=== PATIENT | female | born 1985 ===

== ENCOUNTER → 2018-04-12 | Outpatient (CLI) | payer OTHER ==
[~2018-04-12] MED LIST: GADOBUTROL 10 MMOL/10 ML PFS ONE; IBUP-1223 PO; IRON1TAB60 PO; OXYC-302 PO
== END | disposition home or self-care (01) ==
LOC: CFH 13:39
PROVIDERS: ATTEND Physician Assistant
DX: G43.101 Migraine with aura, not intractable, with status migrainosus (principal)
CPT/HCPCS: 70544; 70553; A9585

== ENCOUNTER → 2018-04-14 | Outpatient (CLI) | payer OTHER ==
[~2018-04-14] MED LIST changes: -GADOBUTROL 10 MMOL/10 ML PFS ONE
== END | disposition home or self-care (01) ==
LOC: CARD 08:50
PROVIDERS: ATTEND Physician Assistant
DX: G43.101 Migraine with aura, not intractable, with status migrainosus (principal)
CPT/HCPCS: 95819